=== PATIENT | female | born 1960 | race Caucasian/White ===

== ENCOUNTER 2019-04-29 13:12 | Emergency (ER) | payer OTHER, MEDICARE, MEDICAID ==
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
[2019-04-29 15:31] VITALS: BP 150/84
== END 2019-04-29 15:37 | disposition home or self-care (01) ==
LOC: ER 13:12
DX: R41.0 Disorientation, unspecified (principal); S16.1XXA Strain of muscle, fascia and tendon at neck level, initial encounter; V44.5XXA Car driver injured in collision with heavy transport vehicle or bus in traffic accident, initial encounter; R41.3 Other amnesia; M47.9 Spondylosis, unspecified; R05 Cough; M79.10 Myalgia, unspecified site; I10 Essential (primary) hypertension; J45.909 Unspecified asthma, uncomplicated; F17.210 Nicotine dependence, cigarettes, uncomplicated; Z71.6 Tobacco abuse counseling; Z88.5 Allergy status to narcotic agent
CPT/HCPCS: 70450; 71046; 72125; 99285

== ENCOUNTER 2019-05-14 18:46 | Emergency (ER) | payer OTHER, MEDICARE, MEDICAID ==
[2019-05-14] MEDS ORDERED: CYCLOBENZAPRINE HCL 10 MG TABLET PO ONE (19:25)
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
[2019-05-14 22:26] VITALS: BP 134/74
--- NOTE | 2019-05-15 07:35 | EKG REPORT ---
SEVERITY:- ABNORMAL ECG - SINUS RHYTHM ABNRM R PROG, CONSIDER ASMI OR LEAD PLACEMENT : Confirmed by: Haresh Naqvi MD 15-May-2019 07:35:31
== END 2019-05-14 22:23 | disposition home or self-care (01) ==
LOC: ER 18:46
DX: M89.8X8 Other specified disorders of bone, other site (principal); V43.52XA Car driver injured in collision with other type car in traffic accident, initial encounter; I10 Essential (primary) hypertension; J45.909 Unspecified asthma, uncomplicated; F41.9 Anxiety disorder, unspecified; F32.9 Major depressive disorder, single episode, unspecified; F43.10 Post-traumatic stress disorder, unspecified; Z79.899 Other long term (current) drug therapy; Z88.5 Allergy status to narcotic agent
CPT/HCPCS: 71111; 71120; 93005; 93010; 99283

== ENCOUNTER 2020-01-24 12:05 | Emergency (ER) | payer MEDICARE, MEDICAID ==
[2020-01-24] MEDS ORDERED: METHYLPREDNISOLONE INJ 125 MG/2 ML SDV IV ONE (13:21)
[2020-01-24] MEDS ORDERED: ALBUTEROL SULFATE HFA (90 MCG/PUFF) 8 GM MDI (1 MDI/ER DISP) IH PRN (13:21)
[2020-01-24] MEDS ORDERED: BENZONATATE 100 MG CAPSULE PO ONE (13:21)
--- NOTE | 2020-01-24 13:24 | ER Document Report ---
ED General - General Chief Complaint: Cough Stated Complaint: SHORTNESS OF BREATH Time Seen by Provider: 01/24/20 13:05 Primary Care Provider: ADRIEL RIDER MD [Primary Care Provider] - Follow up as needed Notes: Patient is a 59-year-old white female with a history of COPD who presents the emergency department the chief complaint of cough and shortness of breath that began this morning. Patient reports that she awoke this way. She states that she recently ran out of her COPD medication, albuterol and states that she sometimes gets these flares when she is out of medicines. She states that she did congregate last night in [place] but no one was sick that she was aware of. She denies any recent travel. Denies any fevers. Denies chest pain or any new lower extremity pain or swelling. No hemoptysis. No history of DVT or PE. No recent surgery or periods of immobilization. TRAVEL OUTSIDE OF THE [place] IN LAST 30 DAYS: No - Related Data Allergies/Adverse Reactions: codeine Allergy (Verified 05/14/19 19:03) Generalized rash hydrocodone Allergy (Verified 05/14/19 19:03) Exanthematic eruption methadone Allergy (Verified 05/14/19 19:03) Generalized rash morphine Allergy (Verified 05/14/19 19:03) Generalized rash Home Medications: albuterol inhaler, Vraylar, Duloxetine, traxadone, and clonazepam Past Medical History - Social History Smoking Status: Current Every Day Smoker Family History: Arthritis, CAD, COPD, CVA, Hyperlipidemia, Hypertension, Malignancy, Thyroid Disfunction - Past Medical History Cardiac Medical History: Reports: Hx Hypertension Denies: Hx Heart Attack Pulmonary Medical History: Reports: Hx Asthma Neurological Medical History: Denies: Hx Seizures GI Medical History: Reports: Hx Colonoscopy, Hx Endoscopy. Denies: Hx Hiatal Hernia, Hx Ulcer Musculoskeletal Medical History: Reports Hx Arthritis, Reports Hx Musculoskeletal Deformity, Reports Hx Musculoskeletal Trauma Skin Medical History: Reports Hx Eczema Psychiatric Medical History: Reports: Hx Anxiety, Hx Depression, Hx Post Traumatic Stress Disorder Past Surgical History: Reports: Hx Section - 3, Hx Orthopedic Surgery - Wrist surgery 3 back surgery 1 foot surgery 1. Denies: Hx Mastectomy, Hx Open Heart Surgery Review of Systems - Review of Systems Respiratory: Cough, Short of breath -: Yes All other systems reviewed and negative Physical Exam - Vital signs Vitals: Temp Pulse Resp BP Pulse Ox 97.8 F 107 H 16 144/89 H 97 01/24/20 12:25 01/24/20 12:01/24/20 12:01/24/20 12:01/24/20 12:25 - General General appearance: Appears well, Alert In distress: None - HEENT Head: Normocephalic, Atraumatic Eyes: Normal Conjunctiva: Normal Extraocular movements intact: Yes Eyelashes: Normal Pupils: PERRL Ears: Normal Nasal: Normal Mouth/Lips: Normal Mucous membranes: Normal Pharynx: Normal Neck: Normal, Supple - Respiratory Respiratory status: No respiratory distress Chest status: Nontender Breath sounds: Other - Coarse breath sounds throughout, decreased in all lung bales. Dry cough appreciated Chest palpation: Normal - Cardiovascular Rhythm: Regular Heart sounds: Normal auscultation - Extremities General upper extremity: Normal inspection, Nontender, Normal color, Normal ROM, Normal temperature General lower extremity: Normal inspection, Nontender, Normal color, Normal ROM, Normal temperature, Normal weight bearing. No: Sen's sign - Neurological Neuro grossly intact: Yes Cognition: Normal Orientation: AAOx4 Bowman Coma Scale Eye Opening: Spontaneous Dmitri Coma Scale Verbal: Oriented Dmitri Coma Scale Motor: Obeys Commands Dmitri Coma Scale Total: 15 Speech: Normal - Psychological Associated symptoms: Normal affect, Normal mood - Skin Skin Temperature: Warm Skin Moisture: Dry Skin Color: Normal Course - Re-evaluation Re-evalutation: 01/24/20 14:59 Reevaluation at this time. Patient is well-appearing. She is moving air bilaterally, clear to auscultation. No further coarse cough is appreciated.'s chest x-ray was negative for any acute process. Work-up largely unremarkable. History and physical consistent with a COPD exacerbation. Patient was swabbed for COVID-19. She will remain as a patient under investigation and quarantine in her home until the negative result is achieved. Counseled her regarding the importance of outpatient follow-up and advised that she return here or any ER immediately with any new, persistent or worsening symptoms. She verbalized understood and agreed. - Vital Signs Vital signs: Temp Pulse Resp BP Pulse Ox 97.8 F 107 H 16 144/89 H 97 01/24/20 12:25 01/24/20 12:01/24/20 12:25 01/24/20 12:25 01/24/20 12:25 - Laboratory Result Diagrams: 01/24/20 13:36 01/24/20 13:36 Laboratory results interpreted by me: 01/24/20 13:36 BUN 5 L Glucose 111 H Alkaline Phosphatase 137 H Discharge - Discharge Clinical Impression: COPD exacerbation, Person under investigation for COVID-19 Condition: Stable Disposition: HOME, SELF-CARE Instructions: COVID-19 Guidance for Persons Under Investigation, Chronic Obstru ctive Lung Disease ([facility]) Additional Instructions: Follow-up with your regular doctor in 2 to 3 days for reevaluation. Return here or any ER immediately with any new, persistent or worsening symptoms. Please self quarantine and isolate in your home until a negative COVID-19 swab is found. Prescriptions: Prednisone [Deltasone 20 mg Tablet] 40 mg PO DAILY 5 Days #10 tablet Referrals: ADRIEL RIDER MD [Primary Care Provider] - Follow up as needed
[2020-01-24 13:48] LABS: ABSOLUTE BASOPHILS # (AUTO) 0.1 10^3/uL (0.0-0.2); ABSOLUTE EOSINOPHILS # (AUTO) 0.3 10^3/uL (0.0-0.6); ABSOLUTE LYMPHOCYTES (AUTO) 3.1 10^3/uL (0.5-4.7); ABSOLUTE NEUT (AUTO) 4.8 10^3/uL (1.7-8.2); BASOPHILS % (AUTO) 1.3 % (0-2); EOSINOPHILS % (AUTO) 3.6 % (0-6); HEMATOCRIT 44.6 % (36.0-47.0); HEMOGLOBIN 15.3 g/dL (12.0-15.5); LYMPHOCYTES % (AUTO) 33.1 % (13-45); MEAN CORPUSCULAR HEMOGLOBIN 32.2 pg (27.0-33.4); MEAN CORPUSCULAR HGB CONC 34.4 g/dL (32.0-36.0); MEAN CORPUSCULAR VOLUME 94 fl (80-97); MONOCYTES % (AUTO) 10.8 % (3-13); PLATELET COUNT 434 10^3/uL (150-450); RED BLOOD COUNT 4.77 10^6/uL (3.72-5.28); RED CELL DISTRIBUTION WIDTH 12.9 % (11.5-14.0); SEGMENTED NEUTROPHILS % (AUTO) 51.2 % (42-78); TOTAL CELLS COUNTED % (AUTO) 100 %; WHITE BLOOD COUNT 9.4 10^3/uL (4.0-10.5)
[2020-01-24 13:56] LABS: INTERNATIONAL RATION (INR) 0.97; PROTHROMBIN TIME 12.9 SEC (11.4-15.4)
[2020-01-24 13:57] LABS: PARTIAL THROMBOPLASTIN TIME 29.8 SEC (23.5-35.8)
[2020-01-24 14:08] LABS: ALBUMIN 4.4 g/dL (3.5-5.0); ALKALINE PHOSPHATASE 137 U/L (38-126); ANION GAP 6 (5-19); ASPARTATE AMINO TRANSFERASE 19 U/L (14-36); BILIRUBIN,TOTAL 0.5 mg/dL (0.2-1.3); BLOOD UREA NITROGEN 5 mg/dL (7-20); CALCIUM 10.1 mg/dL (8.4-10.2); CARBON DIOXIDE 26 mmol/L (22-30); CHLORIDE 105 mmol/L (98-107); GLUCOSE 111 mg/dL (75-110); POTASSIUM 3.8 mmol/L (3.6-5.0); TOTAL PROTEIN 7.3 g/dL (6.3-8.2)
[2020-01-24 14:19] LABS: NT PRO BNP 102 pg/mL (<125)
[2020-01-24 14:22] LABS: TROPONIN I < 0.012 ng/mL
--- NOTE | 2020-01-24 14:26 | RADIOLOGY REPORT (SQ) ---
EXAM DESCRIPTION: CHEST SINGLE VIEW IMAGES COMPLETED DATE/TIME: 01/24/2020 2:12 pm REASON FOR STUDY: cough, sob COMPARISON: 04/29/2019 EXAM PARAMETERS: NUMBER OF VIEWS: One view. TECHNIQUE: Single frontal radiographic view of the chest acquired. RADIATION DOSE: NA LIMITATIONS: None. FINDINGS: LUNGS AND PLEURA: No opacities, masses or pneumothorax. No pleural effusion. MEDIASTINUM AND HILAR STRUCTURES: No masses. Contour normal. HEART AND VASCULAR STRUCTURES: Heart normal in size. Normal vasculature. BONES: No acute findings. HARDWARE: None in the chest. OTHER: No other significant finding. IMPRESSION: NO ACUTE RADIOGRAPHIC FINDING IN THE CHEST. TECHNICAL DOCUMENTATION: JOB ID: [id number] 2010 [employer]- All Rights Reserved Reading location - IP/workstation name: [email or web address]
[2020-01-24] MEDS ORDERED: ALBUTEROL SULFATE HFA (90 MCG/PUFF) 8 GM MDI IH PRN (14:30)
[2020-01-24] MEDS ORDERED: ALBUTEROL SULFATE HFA (90 MCG/PUFF) 200 PUFF/8.5 GM MDI IH ONE (14:30)
[2020-01-24 15:33] VITALS: BP 149/85
--- NOTE | 2020-01-24 18:10 | EKG REPORT ---
SEVERITY:- BORDERLINE ECG - SINUS TACHYCARDIA PROBABLE LEFT ATRIAL ABNORMALITY NONSPECIFIC ST-T CHANGES- ANTEROLATERAL LEADS : Confirmed by: Haresh Naqvi MD 24-Jan-2020 18:09:56
== END 2020-01-24 15:33 | disposition home or self-care (01) ==
LOC: ER 12:05
DX: J44.1 Chronic obstructive pulmonary disease with (acute) exacerbation (principal); Z20.828 Contact with and (suspected) exposure to other viral communicable diseases; R05 Cough; R06.02 Shortness of breath; F17.200 Nicotine dependence, unspecified, uncomplicated; I10 Essential (primary) hypertension; F41.9 Anxiety disorder, unspecified; F32.9 Major depressive disorder, single episode, unspecified; Z79.899 Other long term (current) drug therapy; Z88.6 Allergy status to analgesic agent; Z88.5 Allergy status to narcotic agent
CPT/HCPCS: 93005; 99285; 36415; 85025; 85610; 85730; 80053; 84484; 83880; 71045; 93010; U0003; A9270 ×2; J2930; C9803; 87635; J3490

== ENCOUNTER 2020-02-04 06:48 | Emergency (ER) | payer MEDICARE, MEDICAID ==
--- NOTE | 2020-02-04 08:57 | RADIOLOGY REPORT (SQ) ---
EXAM DESCRIPTION: CHEST SINGLE VIEW IMAGES COMPLETED DATE/TIME: 02/04/2020 8:45 am REASON FOR STUDY: sob COMPARISON: 01/24/2020 EXAM PARAMETERS: NUMBER OF VIEWS: One view. TECHNIQUE: Single frontal radiographic view of the chest acquired. RADIATION DOSE: NA LIMITATIONS: None. FINDINGS: LUNGS AND PLEURA: No opacities, masses or pneumothorax. No pleural effusion. MEDIASTINUM AND HILAR STRUCTURES: No masses. Contour normal. HEART AND VASCULAR STRUCTURES: Heart normal in size. Normal vasculature. BONES: No acute findings. HARDWARE: None in the chest. OTHER: No other significant finding. IMPRESSION: NO ACUTE RADIOGRAPHIC FINDING IN THE CHEST. TECHNICAL DOCUMENTATION: JOB ID: [id number] 2010 [employer]- All Rights Reserved Reading location - IP/workstation name: [email or web address]
--- NOTE | 2020-02-04 09:37 | ER Document Report ---
HPI - HPI Patient complains to provider of: Shortness of breath Time Seen by Provider: 02/04/20 08:33 Onset: Yesterday Onset/Duration: Sudden Pain Level: 0 Context: Patient states that her air conditioner has been out for the past week. Patient states she was at home and became short of breath during the evening. Patient states she has had a nonproductive cough but typically has this with her COPD and asthma. Patient denies any chest pain or fever. Patient feels that the heat has triggered her asthma flareups. Patient was given a nebulizer treatment per EMS and feels much better since the treatment. Associated Symptoms: Nonproductive cough. denies: Chest pain, Fever, Headache, Rhinnorhea Exacerbated by: Other - Extreme heat Relieved by: Other - Breathing treatment Similar symptoms previously: Yes Recently seen / treated by doctor: Yes - ROS ROS below otherwise negative: Yes Systems Reviewed and Negative: Yes All other systems reviewed and negative - CONSTITUTIONAL Constitutional: DENIES: Fever, Chills - CARDIOVASCULAR Cardiovascular: DENIES: Chest pain - RESPIRATORY Respiratory: REPORTS: Coughing - GASTROINTESTINAL Gastrointestinal: DENIES: Nausea, Patient vomiting - MUSCULOSKELETAL Musculoskeletal: DENIES: Back Pain - DERM Skin Color: Normal Skin Problems: None Past Medical History - General Information source: Patient - Social History Smoking Status: Former Smoker Frequency of alcohol use: None Drug Abuse: None Lives with: Alone Family History: Arthritis, CAD, COPD, CVA, Hyperlipidemia, Hypertension, Malignancy, Thyroid Disfunction - Past Medical History Cardiac Medical History: Reports: Hx Hypertension Denies: Hx Heart Attack Pulmonary Medical History: Reports: Hx Asthma, Hx COPD Neurological Medical History: Denies: Hx Seizures GI Medical History: Reports: Hx Colonoscopy, Hx Endoscopy. Denies: Hx Hiatal Hernia, Hx Ulcer Musculoskeletal Medical History: Reports Hx Arthritis, Reports Hx Musculoskeletal Deformity, Reports Hx Musculoskeletal Trauma Skin Medical History: Reports Hx Eczema Psychiatric Medical History: Reports: Hx Anxiety, Hx Depression, Hx Post Traumatic Stress Disorder Past Surgical History: Reports: Hx Section - 3, Hx Orthopedic Surgery - Wrist surgery 3 back surgery 1 foot surgery 1. Denies: Hx Mastectomy, Hx Open Heart Surgery Vertical Provider Document - CONSTITUTIONAL Agree With Documented VS: Yes Exam Limitations: No Limitations General Appearance: WD/WN, No Apparent Distress - INFECTION CONTROL TRAVEL OUTSIDE OF THE [place] IN LAST 30 DAYS: No - HEENT HEENT: Atraumatic, Normal ENT Exam, Normocephalic - NECK Neck: Normal Inspection, Supple. negative: Lymphadenopathy-Left, Lymphadenopathy-Right - RESPIRATORY Respiratory: Breath Sounds Normal, No Respiratory Distress, Chest Non-Tender - CARDIOVASCULAR Cardiovascular: Regular Rate, Regular Rhythm, No Murmur - BACK Back: Normal Inspection - MUSCULOSKELETAL/EXTREMETIES Musculoskeletal/Extremeties: KAREN ONTIVEROS - NEURO Level of Consciousness: Awake, Alert, Appropriate Motor/Sensory: No Motor Deficit - DERM Integumentary: Warm, Dry, No Rash Course - Re-evaluation Re-evalutation: 02/04/20 09:32 Patient's breath sounds clear bilaterally. Patient denies any dyspnea or chest pain at this time. Patient reports chronic nonproductive cough due to her COPD. Patient states all she needed was to be out of the heat and to get a treatment and states that she is better at this time. Consulted with Dr. Gee who agrees with discharge plan of care at this time. Will give patient a prescription for steroids as well as an inhaler nebulizer as she ran out of these at home. Good return precautions discussed with patient. - Vital Signs Vital signs: Temp Pulse Resp BP Pulse Ox 98.4 F 69 17 123/65 94 02/04/20 07:03 02/04/20 07:03 02/04/20 07:03 02/04/20 07:03 02/04/20 07:03 - Diagnostic Test Radiology reviewed: Reports reviewed Discharge - Discharge Clinical Impression: Asthma Qualifiers: Asthma severity: unspecified severity Asthma persistence: unspecified Asthma complication type: with acute exacerbation Qualified Code(s): J45.901 - Unspecified asthma with (acute) exacerbation COPD (chronic obstructive pulmonary disease) Qualifiers: COPD type: unspecified COPD Qualified Code(s): J44.9 - Chronic obstructive pulmonary disease, unspecified Condition: Stable Disposition: HOME, SELF-CARE Instructions: Asthma ([facility]), Chronic Obstructive Lung Disease ([facility]), Steroid Medication Additional Instructions: Return immediately for any new or worsening symptoms Followup with your primary care provider, call tomorrow to make a followup appointment Prescriptions: Nebulizer [Aeroeclipse II] 1 each MC ASDIR PRN #1 each PRN Reason: Prednisone [Deltasone 20 mg Tablet] 2 tab PO DAILY 5 Days #10 tablet Albuterol Sulfate [Proair Hfa Inhalation Aerosol 8.5 gm Mdi] 2 puff IH Q4 PRN #1 mdi PRN Reason: Albuterol Sulfate [Ventolin 0.083% Neb 2.5 mg/3 ml Ampul] 1 vial NEB Q4 PRN #30 vial PRN Reason: Referrals: ADRIEL RIDER MD [Primary Care Provider] - Follow up tomorrow
[2020-02-04 10:22] VITALS: BP 125/74
== END 2020-02-04 10:22 | disposition home or self-care (01) ==
LOC: ER 06:48
DX: R06.02 Shortness of breath (principal); J45.901 Unspecified asthma with (acute) exacerbation; J44.9 Chronic obstructive pulmonary disease, unspecified; R05 Cough; I10 Essential (primary) hypertension; Z87.891 Personal history of nicotine dependence
CPT/HCPCS: 71045; 99285

== ENCOUNTER → 2020-07-21 | Outpatient (CLI) | payer MEDICARE, MEDICAID ==
[2020-07-21 17:14] LABS: ABSOLUTE BASOPHILS # (AUTO) 0.1 10^3/uL (0.0-0.2); ABSOLUTE EOSINOPHILS # (AUTO) 0.3 10^3/uL (0.0-0.6); ABSOLUTE LYMPHOCYTES (AUTO) 3.9 10^3/uL (0.5-4.7); ABSOLUTE MONOCYTES (AUTO) 0.9 10^3/uL (0.1-1.4); ABSOLUTE NEUT (AUTO) 4.7 10^3/uL (1.7-8.2); BASOPHILS % (AUTO) 1.4 % (0-2); EOSINOPHILS % (AUTO) 2.9 % (0-6); HEMATOCRIT 42.1 % (36.0-47.0); HEMOGLOBIN 14.3 g/dL (12.0-15.5); LYMPHOCYTES % (AUTO) 39.4 % (13-45); MEAN CORPUSCULAR HEMOGLOBIN 31.9 pg (27.0-33.4); MEAN CORPUSCULAR VOLUME 94 fl (80-97); PLATELET COUNT 360 10^3/uL (150-450); RED BLOOD COUNT 4.49 10^6/uL (3.72-5.28); RED CELL DISTRIBUTION WIDTH 13.1 % (11.5-14.0); SEGMENTED NEUTROPHILS % (AUTO) 47.3 % (42-78); TOTAL CELLS COUNTED % (AUTO) 100 %; WHITE BLOOD COUNT 9.9 10^3/uL (4.0-10.5)
[2020-07-21 17:22] LABS: URINE AMPHETAMINES SCREEN NEGATIVE; URINE BARBITURATES SCREEN NEGATIVE; URINE BENZODIAZEPINES SCREEN NEGATIVE; URINE COCAINE SCREEN NEGATIVE; URINE MARIJUANA (THC) SCREEN NEGATIVE; URINE METHADONE SCREEN NEGATIVE; URINE PHENCYCLIDINE SCREEN NEGATIVE
[2020-07-21 17:30] LABS: BLOOD UREA NITROGEN 8 mg/dL (7-20); CALCIUM 9.7 mg/dL (8.4-10.2); GLUCOSE 105 mg/dL (75-110); POTASSIUM 4.7 mmol/L (3.6-5.0)
[2020-07-21 17:35] LABS: CARBON DIOXIDE 32 mmol/L (22-30); CHLORIDE 102 mmol/L (98-107)
[2020-07-21 17:39] LABS: ANION GAP 3 (5-19)
--- NOTE | 2020-07-22 10:28 | EKG REPORT ---
SEVERITY:- NORMAL ECG - SINUS RHYTHM : Confirmed by: Elia Jarquin 22-Jul-2020 10:28:05
== END ==
LOC: OD 15:50
PROVIDERS: ATTEND Orthopaedic Surgery
DX: Z01.810 Encounter for preprocedural cardiovascular examination (principal); Z01.812 Encounter for preprocedural laboratory examination; M48.061 Spinal stenosis, lumbar region without neurogenic claudication; M51.26 Other intervertebral disc displacement, lumbar region; M51.36 Other intervertebral disc degeneration, lumbar region; M96.1 Postlaminectomy syndrome, not elsewhere classified; G89.4 Chronic pain syndrome; I10 Essential (primary) hypertension; F17.200 Nicotine dependence, unspecified, uncomplicated; J45.909 Unspecified asthma, uncomplicated
CPT/HCPCS: 36415; 80307 ×2; 85025; 80048; 87070; G0480; 80323; 93005; 93010

== ENCOUNTER → 2020-07-24 | Outpatient (CLI) | payer MEDICARE, MEDICAID ==
--- NOTE | 2020-07-24 09:01 | RADIOLOGY REPORT (SQ) ---
EXAM DESCRIPTION: CHEST 2 VIEWS IMAGES COMPLETED DATE/TIME: 07/24/2020 8:51 am REASON FOR STUDY: PRE OP TESTING COMPARISON: None. EXAM PARAMETERS: NUMBER OF VIEWS: two views TECHNIQUE: Digital Frontal and Lateral radiographic views of the chest acquired. RADIATION DOSE: NA LIMITATIONS: none FINDINGS: LUNGS AND PLEURA: Minimal left basilar atelectasis. No consolidation. No effusions. No pneumothorax. MEDIASTINUM AND HILAR STRUCTURES: No masses or contour abnormalities. HEART AND VASCULAR STRUCTURES: Heart normal size. No evidence for failure. BONES: No acute findings. HARDWARE: None in the chest. OTHER: No other significant finding. IMPRESSION: No significant findings. Minimal left basilar atelectasis. TECHNICAL DOCUMENTATION: JOB ID: [id number] 2010 [employer]- All Rights Reserved Reading location - IP/workstation name: [email or web address]
== END ==
LOC: RAD 08:41
PROVIDERS: ATTEND Orthopaedic Surgery
DX: Z01.811 Encounter for preprocedural respiratory examination (principal); J45.909 Unspecified asthma, uncomplicated; I10 Essential (primary) hypertension; F17.200 Nicotine dependence, unspecified, uncomplicated; G89.4 Chronic pain syndrome; M54.16 Radiculopathy, lumbar region; M48.061 Spinal stenosis, lumbar region without neurogenic claudication; M51.26 Other intervertebral disc displacement, lumbar region; M96.1 Postlaminectomy syndrome, not elsewhere classified; M54.17 Radiculopathy, lumbosacral region; M51.36 Other intervertebral disc degeneration, lumbar region
CPT/HCPCS: 71046